=== PATIENT | male | born 1955 | race Caucasian/White ===

== ENCOUNTER 2017-04-22 13:13 | Inpatient (IN) ==
[2017-04-22] MEDS ORDERED: ASPIRIN PO STA (13:56)
[2017-04-22 14:23] LABS: MANUAL DIFF NEEDED? NO
[2017-04-22 14:30] LABS: BASO% 0.6 % (0.0-0.8); EOS# 0.26 X1000 (0.0-0.7); EOS% 4.1 % (0.0-10.0); HEMATOCRIT 48.2 % (42.0-52.0); HEMOGLOBIN 15.9 g/dL (14.0-18.0); IMM GRAN# 0.03 X1000 (0.0-0.04); IMM GRAN% 0.5 % (0.0-0.5); LYMPH# 2.17 X1000 (1.2-3.4); LYMPH% 34.4 % (20.5-51.1); MONO# 0.59 X1000 (0.11-0.59); MONO% 9.4 % (1.7-9.3); MPV 9.6 FL (7.4-10.4); PLT 204 X1000 (130-400); RBC 5.48 XMIL (4.7-6.1)
--- NOTE | 2017-04-22 14:31 | Diag Imaging Result Doc PS360 ---
EXAM: CHEST-2 VIEWS HISTORY: CP TECHNIQUE: PA and lateral chest COMMENT: The inspiration is suboptimal. There is subsegmental atelectasis in both lung bases. There are no previous studies. IMPRESSION: Basilar atelectasis. Electronically signed by Mack Guillory 04/22/2017 2:28 PM
--- NOTE | 2017-04-22 14:39 | EKG Report ---
Test Performed on : 04/22/2017 1:52:03 PM Test Reason : SOB Blood Pressure : / mmHG Vent. Rate : 058 BPM Atrial Rate : 058 BPM P-R Int : 154 ms QRS Dur : 154 ms QT Int : 502 ms P-R-T Axes : 044 -32 089 degrees QTc Int : 492 ms Sinus bradycardia. Left axis deviation Left bundle branch block Abnormal ECG No previous ECGs available Unconfirmed Result
[2017-04-22 14:40] LABS: INR 1.05; PROTIME 11.1 Seconds (9.2-11.7); PTT 26.8 Seconds (22.0-36.0)
[2017-04-22 14:50] LABS: AGAP 10; ALBUMIN 4.4 g/dL (3.5-5.0); ALKALINE PHOSPHATASE 42 U/L (32-122); BUN 14 mg/dL (8-22); CALCIUM 9.8 mg/dL (8.8-10.2); CHLORIDE 98 mmol/L (98-107); COSMO 274; GOT 33 U/L (10-34); GPT 38 U/L (10-44); MAGNESIUM 1.7 mg/dL (1.5-2.7); POTASSIUM 4.8 mmol/L (3.5-5.1); SODIUM 137 mmol/L (136-145); TCO2 29 mmol/L (25-35); TOTAL BILIRUBIN 0.64 mg/dL (0.20-1.00); TOTAL PROTEIN 7.7 g/dL (6.3-8.3)
[2017-04-22 15:15] LABS: CK PROFILE 702 U/L (24-204)
[2017-04-22 15:32] LABS: CK INDEX 2.1 (0.0-2.5); CK-MB 14.48 ng/mL (0.0-5.0)
[2017-04-22] MEDS ORDERED: LASIX IV ONE (17:24)
[2017-04-22] MEDS ORDERED: DUONEB (A & A) INH PRN (19:38)
[2017-04-22 20:50] LABS: CK INDEX 2.1 (0.0-2.5); CK-MB 13.32 ng/mL (0.0-5.0)
[2017-04-22] MEDS: LOVENOX SUBQ SCH (21:10)
[2017-04-22] MEDS: DUONEB (A & A) INH SCH (22:55)
[2017-04-23 02:21] LABS: CK-MB 12.19 ng/mL (0.0-5.0)
[2017-04-23] MEDS: DUONEB (A & A) INH SCH ×3 (03:13→15:31)
[2017-04-23 07:15] LABS: AGAP 15; BUN 18 mg/dL (8-22); CALCIUM 9.3 mg/dL (8.8-10.2); CHLORIDE 96 mmol/L (98-107); COSMO 280; HDL 32 mg/dL (35-55); LDL 103 mg/dL; POTASSIUM 3.9 mmol/L (3.5-5.1); SODIUM 139 mmol/L (136-145); TCO2 28 mmol/L (25-35); TRIGLYCERIDES 202 mg/dL (39-160); VLDL 40 mg/dL
[2017-04-23] MEDS ORDERED: ASPIRIN PO SCH (09:00)
--- NOTE | 2017-04-23 14:42 | EKG Report ---
Test Performed on : 04/23/2017 1:19:39 PM Test Reason : dyspnea Blood Pressure : / mmHG Vent. Rate : 070 BPM Atrial Rate : 070 BPM P-R Int : 160 ms QRS Dur : 150 ms QT Int : 468 ms P-R-T Axes : 049 -32 144 degrees QTc Int : 505 ms Normal sinus rhythm. Left axis deviation Left bundle branch block Abnormal ECG When compared with ECG of 22-APR-2017 13:52, No significant change was found Confirmed by Estefanía MINAYA, Jose Armando Butts ([id number]) on 04/25/2017 6:18:00 PM
[2017-04-23] MEDS ORDERED: LIPITOR PO SCH (21:00)
[2017-04-23] MEDS: LOVENOX SUBQ SCH (21:51)
[2017-04-23] MEDS: LOPRESSOR PO SCH (21:51)
[2017-04-24 07:32] LABS: AGAP 7; BUN 24 mg/dL (8-22); CALCIUM 9.7 mg/dL (8.8-10.2); CHLORIDE 101 mmol/L (98-107); COSMO 282; POTASSIUM 4.1 mmol/L (3.5-5.1); SODIUM 139 mmol/L (136-145); TCO2 31 mmol/L (25-35)
[2017-04-24] MEDS: LOPRESSOR PO SCH (08:06)
[2017-04-24] MEDS ORDERED: LEXISCAN ONE (09:22)
[2017-04-24] MEDS: ASPIRIN PO SCH ×2 (09:54→13:59)
[2017-04-24] MEDS: PRINIVIL PO SCH ×2 (09:54→13:59)
--- NOTE | 2017-04-24 13:12 | Diag Imaging Result Document ---
PROCEDURE NAME: MYOCARDIAL PERF SCAN, STR/REST - 04/23/2017 INDICATIONS: Dyspnea. PROCEDURES PERFORMED: 1. Lexiscan stress. 2. Two-day stress rest myocardial perfusion imaging. PROCEDURE IN DETAIL: Mr. Kramer was brought to the nuclear laboratory on the and had a resting study with injection of 36.5 mCi of technetium-99m sestamibi with the usual imaging protocol utilized. Subsequently he had a Lexiscan stress. At peak stress, he was injected with 36.9 mCi of technetium-99m sestamibi with usual imaging protocol utilized. FINDINGS: LEXISCAN STRESS RESULTS: 1. Baseline EKG shows left bundle branch block. 2. Lexiscan stress does not demonstrate any clear evidence of ischemic related EKG changes or significant arrhythmias. PERFUSION IMAGING RESULTS: 1. No evidence of abnormal extracardiac uptake. 2. TID ratio is 1.08. 3. Perfusion imaging shows a small size, mild intensity, fixed defect in the mid and basal anterior septal regions. This defect actually improves from rest to stress imaging. No evidence of ischemia as identified on this study. 4. Normal ejection fraction on rest of 59 and stress of 54. The rest end-diastolic volume is 124, with an end-systolic volume of 50. Normal wall motion is noted. cc: MD Mitra Joy PA
[2017-04-24 14:17] VITALS: BP 112/66
--- NOTE | 2017-04-24 14:17 | ECHO REPORT ---
ORDER DATE: 04/22/2017 INDICATION: Shortness breath. FINDINGS: 1. Right atrium appears normal size. 2. Trace tricuspid regurgitation. 3. Normal RV size and systolic function. 4. Trace pulmonic insufficiency. 5. Mild left atrial enlargement with a left atrial volume index of 32. 6. No mitral prolapse. Trace mitral regurgitation. 7. Normal LV size, end-diastolic dimension of 3.7. Mild left ventricular hypertrophy with a posterior and interventricular septal wall thickness 1.3 cm each. Normal LV systolic function. Calculated EF is 56% with normal wall motion. 8. Aortic valve opens well. It is trileaflet. No evidence of stenosis or insufficiency. 9. Aorta appears normal in visualized segments. 10. No pericardial effusion seen. cc: MD Constantin Joy CRNP
== END 2017-04-24 17:33 | disposition home or self-care (01) ==
LOC: ED 13:13 → 3N 17:40 → SUATTDRO 17:40
PROVIDERS: ATTEND Internal Medicine